=== PATIENT | female | born 1950 | race Caucasian/White ===

== ENCOUNTER 2022-09-17 09:49 | Outpatient (CLI) | payer MEDICARE, BC, SELFPAY ==
[2022-09-17 11:54] LABS: Basophils Absolute Auto 0.1 K/mm3 (0.0-0.1); Basophils Percent Auto 0.7 % (0.2-1.2); Eosinophils Absolute Auto 0.2 K/mm3 (0-0.3); Eosinophils Percent Auto 1.5 % (0-4.4); Hematocrit 45.1 % (37.0-47.0); Hemoglobin 14.5 g/dL (12.0-15.0); Immature Granulocyte Absolute 0.04 K/mm3 (0.00-0.031); Immature Granulocyte Percent A 0.4 % (0-0.5); Lymphocytes Absolute Auto 1.91 K/mm3 (0.9-3.2); Lymphocytes Percent Auto 18.7 % (18.3-44.2); Mean Corpuscular HGB Conc 32.2 g/dl (32-36); Mean Corpuscular Hemoglobin 28.2 pg (26-34); Mean Corpuscular Volume 87.7 fl (80-100); Mean Platelet Volume 10.3 fl (7.4-10.4); Monocytes Absolute Auto 0.8 K/mm3 (0.1-0.6); Monocytes Percent Auto 7.6 % (2.6-8.5); Neutrophils Absolute Auto 7.3 K/mm3 (1.3-6.7); Neutrophils Percent Auto 71.1 % (45.5-73.1); Platelet Count Result 292 k/mm3 (150-375); Red Blood Count 5.14 M/mm3 (4.2-5.4); Red Cell Distribution Width 13.2 % (11.5-14.5); White Blood Count 10.2 K/mm3 (4.5-10.0)
[2022-09-17 12:01] LABS: Albumin Level 4.3 g/dL (3.5-5.1); Anion Gap 6 mmol/L (8-16); Blood Urea Nitrogen 28 mg/dL (7-17); Calcium 9.2 mg/dL (8.4-10.2); Carbon Dioxide 27 mmol/L (22-30); Chloride 107 mmol/L (98-107); Estimated Glomerular Filt Rate > 60; Glucose 82 mg/dL (65-110); Potassium 4.4 mmol/L (3.4-5.0); Sodium 140 mmol/L (137-145)
[2022-09-17 12:04] LABS: Urine Cotinine NEGATIVE
[2022-09-17 12:09] LABS: Hemoglobin A1C 5.5 % (<5.7)
== END 2022-09-17 09:50 | disposition home or self-care (01) ==
PROVIDERS: PCP Nurse Practitioner; Visit Provider Orthopaedic Surgery
DX: M17.11 Unilateral primary osteoarthritis, right knee (principal); Z01.818 Encounter for other preprocedural examination
CPT/HCPCS: 80048; 80307; 82040; 83036; 85025; 87081

== ENCOUNTER 2022-11-09 01:21 | Day surgery (SDC) | payer MEDICARE, BC, SELFPAY ==
[2022-09-17 10:11] VITALS: BP 148/87; PULSE 79; RESP 16; TEMP 36.7; O2SAT 99; BMI 39.4
--- NOTE | 2022-09-17 10:28 | PC.NURSE ---
Report to the Outpatient Waiting Room, entrance under the green pavilion located off [facility], at time _10:00AM on date ___10/07/22____. Planned Procedure Time: __12:00PM . Time changes happen often and if your time is changed the preop area will call you the afternoon before. - You and your visitor will be asked to self-screen and do not enter if you have any COVID symptoms. - A mask is optional within the hospital at this time. Patients may have clear liquids (water, carbonated beverages, clear teas, apple juice) until 3 hours prior to surgery with a maximum of 20 ounces. - No food from midnight until time of surgery Take the following medications with a SIP of water the morning of surgery: ___NONE DO NOT STOP ANY OF YOUR OTHER PRESCRIPTION MEDICATIONS PRIOR TO SURGERY ?EXCEPT THE FOLLOWING Medications to discontinue per physician ___HOLD MELOXICAM AND ALL VITAMINS/SUPPLEMENTS PER DR MCDANIEL(PER PATIENT) Date to take last dose___09/30/22 Please no make-up, nail arabic, hairspray, perfume, deodorant, or body powder the day of surgery. No jewelry (including any body piercings) or valuables the day of surgery, leave them at home. Please take a shower or bath the night before, or the morning of, surgery with an antibacterial soap. Wear comfortable, loose fitting clothing. Children are encouraged to wear pajamas. - Jewelry must be removed prior to entering the operating room. Rings and piercings that are not removed may be cut off. - The hospital will not accept responsibility for valuables. - Please leave all valuables, including medications, at home the day of surgery. If you are going home after surgery, a licensed clamp truck driver must drive you home. - NO public transportation without another adult if you receive anesthesia. - We recommend that an adult stay with you for 24 hours following discharge. - We also recommend that you do not drive, make important decision, drink alcoholic beverages, or take any drugs that were not prescribed by your health care provider for at least 24 hours after your discharge time. Follow any additional instructions given to you from your surgeon. If you or anyone in your household have experienced Covid symptoms in the past week, please notify your surgeon or the nurse liaison at the phone number below for possible testing. Telephone instructions given to ___PATIENT and asked if any additional questions and then verbalized understanding. Patient advised to call surgeon office or pre surgery nurse liaison [phone] if any additional questions.
--- NOTE | 2022-10-06 07:21 | PM.IMHP ---
H&P: HPI History of Present Illness Date/Time: 10/06/22 07:21 Chief Complaint: Right knee DJD Narrative: 72-year-old female patient of Dr. Oconnor who presents today for right total knee arthroplasty. Patient having pain in his knee for years. She has been treated nonsurgically with anti-inflammatories as well as injections. She has not had an injection for 5 months. She has severe medial compartment osteoarthritis in the knee. Patient has range to point where sure symptoms are miserable on a daily basis she feels ready proceed with total knee arthroplasty at this point. Review of Systems Review of Systems: All systems reviewed & are unremarkable except as noted in HPI and below PMFSH Social History Social History Smoking packs per day: 1 Smoking cigarettes per day: 20.0 Years smoked: 20 Smoking pack-years: 20.00 Smoking status: Former smoker Tobacco type: cigarettes Second hand tobacco smoke exposure: No Smoking end date: 10/31/88 Alcohol intake: current Drinks per week: 1 Substance use: never Substance use type: does not use Living arrangements: with family [facility] Spiritual care concerns: No Meds Home Medications and Allergies Home Medications Medication Instructions Recorded Confirmed Type duloxetine 60 mg capsule,delayed 60 mg PO HS 05/20/20 09/17/22 History release atorvastatin 20 mg tablet 20 mg PO HS 09/17/22 09/17/22 History calcium carbonate 333 mg-magnesium 2 tablet PO DAILY 09/17/22 09/17/22 History oxide 133 mg-zinc gluc 5 mg tablet coenzyme Q10 400 mg capsule (Co 400 mg PO EVERY OTHER DAY 09/17/22 09/17/22 History Q-10) esomeprazole magnesium 40 mg 40 mg PO DAILY PRN Indigestion 09/17/22 09/17/22 History capsule,delayed release meloxicam 15 mg tablet 15 mg PO QAM 09/17/22 09/17/22 History Allergies Allergy/AdvReac Type Severity Reaction Status Date / Time prednisone AdvReac Intermediate RAPID Verified 09/17/22 10:03 HEART RATE Exam Narrative: 72-year-old female alert pleasant. She is 5 ft 3 227 lb her BMI is 40.3. Right knee range of motion is from 5-125 degrees. No effusion. Hip range of motion is full without discomfort, negative Stinchfield maneuver. Moderate tenderness over the medial joint line to palpation. Multiple varicose veins throughout the lower extremity without edema. 2+ dorsalis pedis pulse absent posterior artery pulse. No numbness in the right lower extremity. Resp: Auscultation: clear to auscultation bilaterally Cardio: Rate: regular rate Rhythm: regular rhythm Assessment and Plan Assessment and plan (1) Right knee DJD: Code(s): M17.11 - Unilateral primary osteoarthritis, right knee Status: Acute Plan 72-year-old female who has severe medial compartment osteoarthritis the right knee with continued symptoms. Again she feels she is ready proceed with total knee arthroplasty at this point. Surgical procedures well as the risks and complications were discussed in detail all questions were answered and we will proceed. She will walk her meloxicam and any other aspirin ibuprofen products 1 week prior to surgery. She will see her primary care doctor for pre-surgical clearance. She has also seen cardiology, she has a history aneurysm in the ascending aorta that has been stable. She has been cleared from surgery without additional testing. Nasal swab was negative. Chem panel is all within normal limits creatinine is 0.80, hemoglobin 14.5 and platelets are 292. We will plan to use Eliquis for DVT prophylaxis postoperatively.
[2022-10-27 14:58] VITALS: BMI 39.4
--- NOTE | 2022-10-27 15:18 | PC.NURSE ---
PATIENT RESCHEDULED FROM 10/07/22 AFTER FALLING BEFORE COMING IN FOR SURGERY THAT DAY. SHE STATES THAT THE SKIN ON RT KNEE IS NOW HEALED. SEEING DR MCDANIEL IN OFFICE ON 11/04/22 FOR EVAL. ALL PRE-OP INSTRUCTIONS REVIEWED, PT RELAYS UNDERSTANDING. Report to the Outpatient Waiting Room, entrance under the green pavilion located off [facility], at time _6:00AM on date __11/09/22 . Planned Procedure Time: _7:30AM . Time changes happen often and if your time is changed the preop area will call you the afternoon before. - You and your visitor will be asked to self-screen and do not enter if you have any COVID symptoms. - A mask is optional within the hospital at this time. Patients may have clear liquids (water, carbonated beverages, clear teas, apple juice) until 3 hours prior to surgery with a maximum of 20 ounces. - No food from midnight until time of surgery Take the following medications with a SIP of water the morning of surgery: ___NONE DO NOT STOP ANY OF YOUR OTHER PRESCRIPTION MEDICATIONS PRIOR TO SURGERY ?EXCEPT THE FOLLOWING Medications to discontinue per physician __HOLD MELOXICAM AND ALL VITAMINS/SUPPLEMENTS 7 DAYS PRE-OP PER DR MCDANIEL(PER PATIENT)___ Date to take last dose___11/02/22 Please no make-up, nail english, hairspray, perfume, deodorant, or body powder the day of surgery. No jewelry (including any body piercings) or valuables the day of surgery, leave them at home. Please take a shower or bath the night before, or the morning of, surgery with an antibacterial soap. Wear comfortable, loose fitting clothing. Children are encouraged to wear pajamas. - Jewelry must be removed prior to entering the operating room. Rings and piercings that are not removed may be cut off. - The hospital will not accept responsibility for valuables. - Please leave all valuables, including medications, at home the day of surgery. If you are going home after surgery, a licensed local company flatbed truck driver must drive you home. - NO public transportation without another adult if you receive anesthesia. - We recommend that an adult stay with you for 24 hours following discharge. - We also recommend that you do not drive, make important decision, drink alcoholic beverages, or take any drugs that were not prescribed by your health care provider for at least 24 hours after your discharge time. Follow any additional instructions given to you from your surgeon. If you or anyone in your household have experienced Covid symptoms in the past week, please notify your surgeon or the nurse liaison at the phone number below for possible testing. Telephone instructions given to __PATIENT and asked if any additional questions and then verbalized understanding. Patient advised to call surgeon office or pre surgery nurse liaison [phone] if any additional questions.
--- NOTE | 2022-11-06 12:46 | P.PNAN_ITS ---
Anes - Initial Pre Proc Eval Procedure: Operation Date: 11/09/22 07:30 Proposed Procedures p Right Total Knee Arthroplasty - Thierno Pinto MD Date/Time: 11/06/22 12:46 Surgeon: Thierno Pinto MD Pre Op Diagnosis: oa right knee Patient Data Age: 72 Gender: F Height: 1.61 m Weight: 101.7 kg Last Vital Signs Temp 36.7 C 09/17/22 10:11 Pulse 79 09/17/22 10:11 Resp 16 09/17/22 10:11 BP 148/87 H 09/17/22 10:11 Pulse Ox 99 09/17/22 10:11 O2 Del Method Room Air 09/17/22 10:11 Allergies Allergy/AdvReac Type Severity Reaction Status Date / Time prednisone AdvReac Intermediate RAPID Verified 11/09/22 07:06 HEART RATE Home Medications Medication Instructions Recorded Confirmed Type duloxetine 60 mg capsule,delayed 60 mg PO HS 05/20/20 11/09/22 History release atorvastatin 20 mg tablet 20 mg PO HS 09/17/22 11/09/22 History calcium carbonate 333 mg-magnesium 2 tablet PO DAILY 09/17/22 11/09/22 History oxide 133 mg-zinc gluc 5 mg tablet coenzyme Q10 400 mg capsule (Co 400 mg PO EVERY OTHER DAY 09/17/22 11/09/22 History Q-10) esomeprazole magnesium 40 mg 40 mg PO DAILY PRN Indigestion 09/17/22 11/09/22 History capsule,delayed release meloxicam 15 mg tablet 15 mg PO QAM 09/17/22 11/09/22 History Patient hx anesthesia problems: none Family hx anesthesia problems: none Results Review: All pre-operative results and documents have been reviewed as part of the pre- operative evaluation. [facility] Past Medical History Medical History (Updated 11/06/22 @ 12:50 by Neymar Blancas MD) Chronic GERD Hyperlipidemia Obesity Osteoarthritis Social History Social History Smoking packs per day: 1 Smoking cigarettes per day: 20.0 Years smoked: 25 Smoking pack-years: 25.00 Smoking status: Former smoker Tobacco type: cigarettes Second hand tobacco smoke exposure: No Smoking end date: 10/31/90 Alcohol intake: current Drinks per week: 1 Substance use: never Substance use type: does not use Living arrangements: with family Additional living arrangements comments: [facility] Spiritual care concerns: No Anes - Eval Final PreProcedure Day of Procedure 11/06/22 12:46 Patient weight: morbidly obese Heart: regular rate and rhythm Lungs: clear to auscultation and normal air movement Airway: Mallampati scale class II Neurological: alert and oriented Last oral intake: >/= 8 hours ASA classification: III Emergent: no Anesthetic plan: proceed Anesthesia type and monitoring: general ETT Results Review: All pre-operative results and documents have been reviewed as part of the pre- operative evaluation. Informed Consent: The patient's anesthetic plan and its attendant risks and benefits were discussed with the patient/family/POA. Questions were solicited and answers provided to the satisfaction of the patient/family/POA.
--- NOTE | 2022-11-06 12:55 | PM.IMHP ---
H&P: HPI History of Present Illness Date/Time: 11/06/22 12:55 Chief Complaint: Right knee DJD Narrative: 72-year-old female presents today for a right total arthroplasty. Patient has severe medial compartment osteoarthritis in the knee. She has been treating this nonsurgically with anti-inflammatories as well as cortisone injections. At this point non operative measures are not helping and she is having pain on a daily basis. It is limiting her activity. She feels at this point she is ready to proceed with total knee arthroplasty rather continue nonsurgical treatment. Review of Systems Review of Systems: All systems reviewed & are unremarkable except as noted in HPI and below PMFSH Past Medical History Medical History (Updated 11/06/22 @ 12:50 by Neymar Blancas MD) Chronic GERD Hyperlipidemia Obesity Osteoarthritis Social History Social History Smoking packs per day: 1 Smoking cigarettes per day: 20.0 Years smoked: 25 Smoking pack-years: 25.00 Smoking status: Former smoker Tobacco type: cigarettes Second hand tobacco smoke exposure: No Smoking end date: 10/31/90 Alcohol intake: current Drinks per week: 1 Substance use: never Substance use type: does not use Living arrangements: with family [facility] Spiritual care concerns: No Meds Home Medications and Allergies Home Medications Medication Instructions Recorded Confirmed Type duloxetine 60 mg capsule,delayed 60 mg PO HS 05/20/20 10/27/22 History release atorvastatin 20 mg tablet 20 mg PO HS 09/17/22 10/27/22 History calcium carbonate 333 mg-magnesium 2 tablet PO DAILY 09/17/22 10/27/22 History oxide 133 mg-zinc gluc 5 mg tablet coenzyme Q10 400 mg capsule (Co 400 mg PO EVERY OTHER DAY 09/17/22 10/27/22 History Q-10) esomeprazole magnesium 40 mg 40 mg PO DAILY PRN Indigestion 09/17/22 10/27/22 History capsule,delayed release meloxicam 15 mg tablet 15 mg PO QAM 09/17/22 10/27/22 History Allergies Allergy/AdvReac Type Severity Reaction Status Date / Time prednisone AdvReac Intermediate RAPID Verified 10/27/22 14:55 HEART RATE Exam Narrative: 72-year-old female alert pleasant. She is 5 ft 3 and 218 lb BMI is 38.6. Right knee range of motion is from 5-125 degrees. She has mild tenderness over the medial joint line. No definite effusion. Normal stability in the knee. 2+ dorsalis pedis absent posterior artery pulse palpable. Hip range of motion is full without discomfort, negative Stinchfield maneuver. She has normal quad strength. Normal sensation to light touch to lower extremity, no edema in the right lower extremity. Resp: Auscultation: clear to auscultation bilaterally Cardio: Rate: regular rate Rhythm: regular rhythm Assessment and Plan Assessment and plan (1) Right knee DJD: Code(s): M17.11 - Unilateral primary osteoarthritis, right knee Status: Acute Plan 72-year-old female has severe medial compartment osteoarthritis in the right knee with continued symptoms. Again she feels this point she is ready to proceed with total knee arthroplasty. Surgical procedure as well as the risks and complications were discussed in detail questions were answered we will proceed. Patient will stop her meloxicam and any other aspirin ibuprofen products 1 week prior to surgery. Patient will see her primary care doctor for pre-surgical clearance . She is seeing Cardiology and has been evaluated in [facility]. Patient's nasal swab was negative. Chem panel is all within normal limits creatinine 0.80. Hemoglobin 14.5 platelets were 292. Plan use Eliquis for DVT prophylaxis postoperatively.
[2022-11-09] VITALS (18 sets, daily range): BP systolic 115–181; BP diastolic 53–91; PULSE 71–109; RESP 12–19; TEMP 36–37.5; O2SAT 93–100
--- NOTE | ~2022-11-09 | XR_ITS ---
EXAMINATION: [id number] DATE: 11/09/2022 10:17 INDICATION: Postoperative evaluation following right total knee arthroplasty. TECHNIQUE: Anteroposterior and lateral views of the right knee were obtained. COMPARISON: None. FINDINGS: Right total knee arthroplasty with patellar resurfacing appears well seated and in near anatomic alig nment. No fractures identified. Expected postoperative subcutaneous and intra-articular gas. IMPRESSION: 1. Right total knee arthroplasty, negative for postoperative purposes. Reviewed, dictated and finalized at location A.
[2022-11-09] MEDS: LACTATED RINGERS 1,000 ML 30 ML IV CONT ×2 (06:45→10:18)
[2022-11-09] MEDS: TRANEXAMIC ACID 1,000MG/ISO100 1,000 MG/100 ML BAG 200 MG IVPB (07:00)
[2022-11-09] MEDS: ACETAMINOPHEN 500 MG TABLET 1000 MG PO ×2 (07:14→18:14)
--- NOTE | 2022-11-09 07:15 | WPDHPUPDATE1 ---
History and Physical Update Update Date/Time: 11/09/22 07:15 History and Physical has been reviewed, including an updated exam of the patient. There are NO changes in the patient's condition. Risks, benefits, and alternatives have been discussed and questions answered. Patient agrees to proceed with procedure.
[2022-11-09] MEDS: ceFAZolin 2 GM/D5W 50 ML 2 GM/50 ML BAG IVPB (07:26)
[2022-11-09] MEDS: ceFAZolin SODIUM 1 GM VIAL 3 GM (07:51)
[2022-11-09] MEDS: GENTAMICIN BONE CEMENT REFOBACIN 1 EACH TOPICAL (07:52)
[2022-11-09] MEDS: ceFAZolin SODIUM 1 GM VIAL 2 GM IV PUSH (09:26)
[2022-11-09] MEDS: TRANEXAMIC ACID 1,000 MG/10 ML AMPUL 1000 MG IV PUSH (09:26)
--- NOTE | 2022-11-09 10:00 | W.PM.PROC2 ---
Procedure Note - Detailed Date of Procedure 11/09/22 Pre-op Diagnosis oa right knee, obesity, BMI 38. Post-op Diagnosis Same Procedure Performed Patient was brought to the operating room and general anesthesia was administered. The right knee was prepped draped usual fashion. She received 2 g of Ancef, weight based vancomycin, and 1 g of tranexamic acid preoperatively. I felt there were a couple of degrees of hyperextension under anesthesia and she had moderate medial pseudolaxity and lateral laxity. Limb was exsanguinated tourniquet elevated to 300 mmHg. A 7 in longitudinal midline incision was used and a vastus medialis splitting approach utilized splitting the vastus medialis at the superior pole of the patella. Infrapatellar and suprapatellar fat pads were excised a quadriceps synovectomy carried out. There were small osteophytes on the medial and inferior patella but normal articular cartilage on the entire patella which had a smooth contour and the patella was small in size and I felt this was most suitable for non resurfacing. A minimal lateral facetectomy was performed. A guide chris was inserted down the femoral canal after aspiration of canal contents using the 5 degree valgus bushing, 8 mm of bone removed off the distal femur. This removed equal amounts medially and laterally due to the wear medially. Next the tibial plateau was cut. We made a cut about 2 mm under the sclerotic portion of the medial tibial plateau perpendicular to the axis of the tibia. Meniscal remnants were excised the PCL recessed. Flexion gap measured 8 mm medially and 11 mm laterally. The femoral sizing guide was set at 4? of external rotation which matched Whitesides line. Posterior referencing pinholes were placed. We applied the size 65 cutting block and this was going to notch a little bit. We applied the 67.5 made the anterior cut and confirmed that the 65 would indeed notch a little bit. We flexed the femoral component a couple degrees and this allowed us to make a nice anterior cut with the 65 cutting block without notching. Posterior and chamfer cuts were made. The 65 fit nicely with flush fit medially and 1 mm of lateral overhang anterolaterally. Flexion space with the 10 CR insert was symmetric. The knee just came out to full extension. The tibia was sized to a 71 which fit line to line anteromedial to posterolateral at proper rotation. This was punched. We trialed with a 10 insert we had appropriate stability in flexion with 1 mm medial and lateral opening degrees. At extension we had 1/2 mm of medial opening 2.5 mm of lateral opening a barely positive bounce. Posterior femoral osteophyte was removed. We did not perform a posterior capsular release because of her obesity and slight hyperextension preoperatively. Posteromedial osteophyte was removed the tibia but we did not release any of the deep capsule from the tibial plateau. We read trialed and at this time the knee came out to full extension with negative bounce with the 10 insert the same 1/2 mm of medial opening 2 and half lateral opening appropriate stability in all positions and central patellar tracking. Lug holes were drilled. Step drill was used to make multiple perforations in the distal femur and tibial plateau. The bone quality was very good. Bony surfaces were thoroughly irrigated and dried. Using 2 batches of methylmethacrylate 1 the gentamicin powder the cement was immediately applied the 71 vanguard tibial tray then the 65 CR right femoral component then cement applied the tibial plateau pressurized tibial component fully seated cement applied to the femur the femoral component was fully seated the knee brought into extension with the 11 mm 5 and 1 poly insert for cement pressurization tourniquet released at 87 minutes. The cement was allowed to harden after which hemostasis was achieved excess cement was sought for removed. We trialed again with the 10 insert and had the same fin
--- NOTE | 2022-11-09 10:23 | PM.OP ---
Procedure Note - Brief Procedure Note - Brief Date of procedure: 11/09/22 oa right knee Procedure performed: Right total knee arthroplasty Surgeon: BERNABE Yap Description of procedure: 72-year-old female underwent right total knee arthroplasty on 11/09. I was involved in the procedure including positioning patient on OR table as well as 1st assisting through the time of surgery and assisting getting patient to recovery. Total time spent was 3 hours
[2022-11-09] MEDS: fentaNYL CITRATE INJ (*CRX) 100 MCG/2 ML VIAL 25 MCG IV PUSH ×6 (10:37→11:09)
--- NOTE | 2022-11-09 12:30 | ADMGEN ---
This patient, Justyn Barahona, was admitted to Medical Room 251-01. Patient/family oriented to hospital policies and general routines including ID bracelet, bed and alarms, visiting hours, pain management, procedures, bathroom and other care routines, personal items, smoking policy, room service/diet, and visiting hours. Information on how to activate the Rapid Response Team has been discussed. Patient/Family are encouraged to report perceived risks to care and to ask questions if they do not understand what they are told or what they should do.
[2022-11-09] MEDS: oxyCODONE HCL (*CRX) 5 MG TAB IR PO (12:51)
[2022-11-09] MEDS: SODIUM CHLORIDE 0.9% IV 1,000 ML 125 ML IV CONT (12:51)
--- NOTE | 2022-11-09 12:56 | WPDCN ---
Assessment and Plan Assessment and plan (1) Right knee DJD: Code(s): M17.11 - Unilateral primary osteoarthritis, right knee Status: Acute Assessment and Plan: Postoperative day 0 status post right total knee arthroplasty. Wound care, pain control, and DVT prophylaxis deferred to primary service. Agree with PT/OT. (2) Hyperlipidemia: Code(s): E78.5 - Hyperlipidemia, unspecified Status: Acute Assessment and Plan: Continue atorvastatin. (3) Gastroesophageal reflux disease: Code(s): K21.9 - Gastro-esophageal reflux disease without esophagitis Status: Acute Assessment and Plan: No current issues. Continue esomeprazole. (4) Depression: Code(s): F32.A - Depression, unspecified Status: Acute Assessment and Plan: Well controlled on medication. Continue duloxetine. Plan Thank you for allowing us to participate in this patient's care. Please do not hesitate to contact us with any questions. HPI Data of Consult Date/Time: 11/09/22 12:55 Requesting Physician: Thierno Pinto MD Primary Care Provider: Kinza Oconnor, LIBRARY CIRCULATION TECHNICIAN-C Consult Narrative Reason for consult: Postoperative medical management. Narrative: This is a very pleasant 72-year-old female with osteoarthritis, dyslipidemia, gastroesophageal reflux disease, and depression whom the hospitalist service has been consulted for help managing her medical conditions postoperatively. She presented today for elective right knee replacement due to ongoing pain despite conservative outpatient treatment. Her surgery was performed under general anesthesia with no immediate complications documented an estimated blood loss of 200 mL. Postoperatively she has done quite well. She has been up to the chair and to the bathroom several times without much issue. She does have some discomfort in the knee with bending but her pain has been well controlled. She denies paresthesias, skin color, and temperature changes distal to the surgical site. She also denies postoperative fever, chills, sweats, chest pain, shortness a breath, nausea, and vomiting. No personal history of venous thromboembolism. On discharge she will be going home in her will be helping care for her. Regarding her chronic medical conditions, they are few and well controlled with medication. Review of Systems Review of Systems: Twelve systems were reviewed and are negative except for as per HPI. [facility] Past Medical History Medical History (Updated 11/09/22 @ 13:00 by Inna Combs PA-C) Depression Diverticulitis Gastroesophageal reflux disease History of benign breast biopsy Hyperlipidemia Obesity Osteoarthritis Surgical History Surgical History (Updated 11/09/22 @ 13:00 by Inna Combs PA-C) History of arthroplasty of right knee (11/09/22) History of bladder suspension procedure History of eye surgery Glaucoma laser surgery, bilateral. History of hernia repair History of hysterectomy History of laparoscopic adjustable gastric banding History of laparoscopy Social History Social History (Updated 11/09/22 @ 13:01 by Inna Combs PA-C) Social History: Surrogate medical decision maker: Lai Barahona, spouse. Code status: Full code. Smoking packs per day: 1 Smoking cigarettes per day: 20.0 Years smoked: 25 Smoking pack-years: 25.00 Smoking status: Former smoker Tobacco type: cigarettes Second hand tobacco smoke exposure: No Smoking end date: 10/31/90 Alcohol intake: current Drinks per week: 1 Substance use: never Substance use type: does not use Lack of Transportation: No Lack of Food: Never True Current Housing: I Have Housing Concerned About Future Housing: No Difficulty Paying Gas/Electric Bills: No Difficulty Paying for Meds: No Currently Unemployed: No Education: High School Diploma/GED Difficulty w/ Childcare or Family Care: No Ailin
--- NOTE | 2022-11-09 16:46 | PCPTNOTE ---
On 11/09/22, the student, MARY Badillo, provided care and completed [facility] documentation on this patient. I have reviewed the student's documentation and agree with the findings.
[2022-11-09] MEDS: ceFAZolin 1 GM/NS 50 ML 1 GM/50 ML BAG IVPB (16:52)
[2022-11-09] MEDS: KETOROLAC 15 MG/ML VIAL (*BKC) IV PUSH (16:54)
[2022-11-09] MEDS: SENNA/DOCUSATE SODIUM TABLET 2 TAB PO (16:55)
[2022-11-09] MEDS: oxyCODONE HCL (*CRX) 2.5 MG TAB IR PO ×2 (16:55→20:17)
[2022-11-09] MEDS: VANCOMYCIN 1,000 MG/NS 250 ML 1,000 MG/250 ML BAG 250 MG IVPB (20:17)
[2022-11-09] MEDS: ATORVASTATIN 20 MG TABLET PO (20:17)
[2022-11-09] MEDS: DULoxetine HCL 60 MG CAPSULE.DR PO (20:17)
[2022-11-09] MEDS: FAMOTIDINE 20 MG TABLET PO (20:17)
[2022-11-10] VITALS: BP 118/53; PULSE 67; RESP 19; TEMP 36.6; O2SAT 99
[2022-11-10] MEDS: ceFAZolin 1 GM/NS 50 ML 1 GM/50 ML BAG IVPB ×2 (01:25→07:25)
[2022-11-10] MEDS: ACETAMINOPHEN 500 MG TABLET 1000 MG PO ×2 (01:25→05:09)
[2022-11-10] MEDS: oxyCODONE HCL (*CRX) 2.5 MG TAB IR PO ×3 (01:26→08:23)
[2022-11-10 02:00] VITALS: BP 93/40; PULSE 70; RESP 17; TEMP 36.5; O2SAT 97
[2022-11-10 04:00] VITALS: BP 119/59; PULSE 64; RESP 17; TEMP 35.5; O2SAT 99
[2022-11-10 05:44] LABS: Basophils Absolute Auto 0.1 K/mm3 (0.0-0.1); Basophils Percent Auto 0.2 % (0.2-1.2); Hematocrit 41.7 % (37.0-47.0); Immature Granulocyte Absolute 0.17 K/mm3 (0.00-0.031); Immature Granulocyte Percent A 0.8 % (0-0.5); Lymphocytes Absolute Auto 2.33 K/mm3 (0.9-3.2); Lymphocytes Percent Auto 11.5 % (18.3-44.2); Mean Corpuscular HGB Conc 31.2 g/dl (32-36); Mean Corpuscular Hemoglobin 28.1 pg (26-34); Mean Corpuscular Volume 90.1 fl (80-100); Mean Platelet Volume 10.4 fl (7.4-10.4); Monocytes Absolute Auto 1.6 K/mm3 (0.1-0.6); Monocytes Percent Auto 7.6 % (2.6-8.5); Neutrophils Absolute Auto 16.2 K/mm3 (1.3-6.7); Neutrophils Percent Auto 79.9 % (45.5-73.1); Platelet Count Result 284 k/mm3 (150-375); Red Blood Count 4.63 M/mm3 (4.2-5.4); Red Cell Distribution Width 13.7 % (11.5-14.5); White Blood Count 20.3 K/mm3 (4.5-10.0)
[2022-11-10 05:55] VITALS: BP 114/53; PULSE 66; RESP 17; TEMP 36.6; O2SAT 93
[2022-11-10 06:02] LABS: Alkaline Phosphatase 113 U/L (38-126); Anion Gap 2 mmol/L (8-16); Aspartate Amino Transferase 34 U/L (14-36); Bilirubin,Total 0.5 mg/dL (0.2-1.3); Blood Urea Nitrogen 20 mg/dL (7-17); Calcium 8.8 mg/dL (8.4-10.2); Carbon Dioxide 28 mmol/L (22-30); Chloride 106 mmol/L (98-107); Estimated CRCL calculation 65 ml/min; Estimated Glomerular Filt Rate > 60; Glucose 103 mg/dL (65-110); Magnesium 2.1 mg/dL (1.6-2.3); Potassium 4.1 mmol/L (3.4-5.0); Sodium 136 mmol/L (137-145)
[2022-11-10 06:08] LABS: Alanine Aminotransferase 41 U/L (6-35)
--- NOTE | 2022-11-10 06:24 | PM.PNORT ---
Subjective Subjective Date/Time Seen: 11/10/22 06:24 Interval history: Postop day 1 patient is alert. She is afebrile vital signs are stable. Blood pressure is maintained very well overnight. Incision is dry and dressing is dry. Patient was up yesterday with physical therapy ambulating. Pain is well controlled. We did decrease her oxycodone 2.5 mg she is a little drowsy yesterday. Pain is well controlled with the 2.5 mg. She will get started on Celebrex this morning as well as her Eliquis. We will have the patient work with physical therapy this morning and she continues do well should be discharged home later this morning Objective Data Vital Signs Vital Signs: Vital Signs - 24 hr 11/09/22 06:45 11/09/22 10:18 11/09/22 10:30 Temperature 36.0 C L 36.7 C Pulse Rate 84 104 H 106 H Respiratory Rate 16 14 16 Blood Pressure 135/82 169/89 H 181/82 H Pulse Oximetry 97 97 100 Oxygen Delivery Room Air Simple Face Mask Simple Face Mask Oxygen Flow Rate 8 8 11/09/22 10:45 11/09/22 11:00 11/09/22 11:15 Temperature Pulse Rate 105 H 106 H 109 H Respiratory Rate 14 12 12 Blood Pressure 177/91 H 148/84 H 136/86 Pulse Oximetry 100 99 98 Oxygen Delivery Simple Face Mask Simple Face Mask Simple Face Mask Oxygen Flow Rate 8 8 8 11/09/22 11:25 11/09/22 11:30 11/09/22 11:45 Temperature Pulse Rate 107 H 104 H Respiratory Rate 12 16 Blood Pressure 145/83 H 148/76 H Pulse Oximetry 94 95 93 Oxygen Delivery Room Air Room Air Room Air Oxygen Flow Rate 11/09/22 12:00 11/09/22 12:35 11/09/22 12:50 Temperature 36.7 C 36.4 C Pulse Rate 103 H 73 76 Respiratory Rate 14 15 16 Blood Pressure 121/73 121/61 120/66 Pulse Oximetry 93 94 94 Oxygen Delivery Room Air Oxygen Flow Rate 11/09/22 13:45 11/09/22 13:20 11/09/22 14:20 Temperature 36.4 C 36.4 C Pulse Rate 77 104 H Respiratory Rate 16 16 Blood Pressure 123/65 124/75 Pulse Oximetry 94 99 Oxygen Delivery Room Air Oxygen Flow Rate 11/09/22 12:30 11/09/22 16:20 11/09/22 18:20 Temperature Pulse Rate 80 82 Respiratory Rate Blood Pressure 136/68 138/72 Pulse Oximetry Oxygen Delivery Room Air Oxygen Flow Rate 11/09/22 20:00 11/09/22 22:00 11/10/22 00:00 Temperature 37.5 C 36.9 C 36.6 C Pulse Rate 74 71 67 Respiratory Rate 19 19 Blood Pressure 117/60 115/53 L 118/53 L Pulse Oximetry 97 98 99 Oxygen Delivery Oxygen Flow Rate 11/10/22 02:00 11/10/22 04:00 11/10/22 05:55 Temperature 36.5 C 35.5 C L 36.6 C Pulse Rate 70 64 66 Respiratory Rate 17 17 17 Blood Pressure 93/40 L 119/59 L 114/53 L Pulse Oximetry 97 99 93 Oxygen Delivery Oxygen Flow Rate Intake/Output Intake/Output: Intake & Output 11/07/22 11/08/22 11/09/22 11/10/22 23:59 23:59 23:59 23:59 Intake Total 1960 350 Balance 1960 350 Meds/Results Medications: Active Medications Generic Name Dose Route Start Last Admin Trade Name Freq PRN Reason Stop Dose Admin Acetaminophen 1,000 mg 11/09/22 18:00 11/10/22 05:09 Acetaminophen 500 Mg Tablet PO 1,000 mg Q6H KWAME Administration Apixaban 2.5 mg 11/10/22 09:00 Apixaban 2.5 Mg Tablet PO 11/21/22 21:01 Q12HR KWAME Atorvastatin Calcium 20 mg 11/09/22 21:00 11/09/22 20:17 Atorvastatin 20 Mg Tablet PO 20 mg HS KWAME Administration Celecoxib 200 mg 11/10/22 08:00 Celecoxib 200 Mg Capsule PO DAILY@0800 KWAME Cephalexin HCl 500 mg 11/10/22 12:00 Cephalexin 500 Mg Capsule PO Q6HR KWAME Diphenhydramine HCl 25 mg 11/09/22 12:06 Diphenhydramine Hcl Inj 50 Mg/Ml Vial IV PUSH Q6H PRN Itching Duloxetine HCl 60 mg 11/09/22 21:00 11/09/22 20:17 Duloxetine Hcl 60 Mg Capsule.Dr PO 60 mg HS KWAME Administration Famotidine 20 mg 11/09/22 21:00 11/09/22 20:17 Famotidine 20 Mg Tablet PO 20 mg Q12HR KWAME Administration Vancomycin HCl 1,000 mg in 250 mls @ 250 mls/hr 11/09/22 20:00 11/09/22 21:17
--- NOTE | 2022-11-10 06:29 | PM.DS ---
DS: Admitting Diagnosis Discharge Date 11/10 Admitting Diagnosis Right knee DJD DS: Summary Hospital Course Hospital Course: 72-year-old female underwent right total knee arthroplasty on 11/09. Underwent the procedure without complications. Postoperatively she has been afebrile vital signs are stable. Blood pressure was monitored postop due to her history of aortic aneurysm. Pressure never went above 120 systolic. She is on Eliquis for DVT prophylaxis. She is weight-bearing as tolerated. Pain is well controlled with 2.5 mg oxycodone as well as scheduled Tylenol. She is on Celebrex 200 mg daily. She will be discharged home on 11/10. She go home with we could Keflex. She was home with Senokot MiraLax for constipation. Patient was advised she is to keep leg elevated at home prevent swelling. She should do this with keeping the foot higher than her heart, either the bed or the couch. This was thoroughly explained to the patient. She has outpatient therapy starting of this week. Patient was advised she needs to do exercises of flexion extension in the knee every hour while awake at home as well. She was advised any questions or concerns she is to call the office otherwise we will see her at her appointed date. Time Spent with Patient Time attestation: Total time spent providing and/or coordinating discharge services: DS: Data Data Completed and Pending Labs on day of discharge: Labs from last 24 hours 11/10/22 11/09/22 05:21 06:57 WBC Pending RBC Pending Hgb Pending Hct Pending MCV Pending MCH Pending MCHC Pending RDW Pending Plt Count Pending MPV Pending Immature Gran % (Auto) Pending Neut % (Auto) Pending Lymph % (Auto) Pending [place] % (Auto) Pending Eos % (Auto) Pending Baso % (Auto) Pending Lymph # (Auto) Pending [place] # (Auto) Pending Eos # (Auto) Pending Baso # (Auto) Pending Abs Immat Gran (auto) Pending Absolute Neuts (auto) Pending Absolute Nucleated RBC Pending Nucleated RBC % Pending Sodium 136 L Potassium 4.1 Chloride 106 Carbon Dioxide 28 Anion Gap 2 L BUN 20 H Creatinine 0.80 Estim Creat Clear Calc 65 Estimated GFR > 60 Glucose 103 Calcium 8.8 Magnesium 2.1 Total Bilirubin 0.5 Direct Bilirubin 0.0 AST 34 ALT 41 H Alkaline Phosphatase 113 Total Protein 7.0 Albumin 4.0 Blood Type B Positive Antibody Screen Negative Discharge Plan Discharge Patient Disposition: Home, Self-Care Discharge Instructions: ROEL MCDANIEL M.D [facility], [place] [id number] [place] [address] POST-OPERATIVE DISCHARGE INSTRUCTIONS TOTAL KNEE ARTHROPLASTY 1. When resting, lie on back with leg elevated above heart to minimize swelling. Significant swelling could indicate a blood clot and if this occurs call the office (or go to the ER) to have a venous ultrasound. 2. Do exercise 5 times a day. 3. Do not sit with leg down except for meals. 4. Wound Care: Nursing will give additional dressings at discharge. Patient to change dressing at home 1 week from surgery, then maintain until seen in office. 5. May shower with dressing in place. 6. Follow weight bearing status instructions. IMPORTANT: Remember not to sit in the chair for more than 30 minutes at a time. As a rule, during the first 14 days after surgery, only sit in the chair to work on the chair knee bending stretch exercise, for meals or for use of the restroom. Sitting in the chair promotes significant swelling in the knee and leg which will make the knee stiff and more painful and which simulates having a blood clot in the veins of the leg. If this type of significant diffuse swelling occurs, an ultrasound at the hospital will be necessary to rule out a blood clot. Be up walking around with the walker for a few minutes every hour while awake and then rest laying on your back on the
[2022-11-10 08:00] VITALS: BP 125/64; PULSE 68
[2022-11-10] MEDS: VANCOMYCIN 1,000 MG/NS 250 ML 1,000 MG/250 ML BAG 125 MG IVPB (08:23)
[2022-11-10] MEDS: CELECOXIB 200 MG CAPSULE PO (08:51)
[2022-11-10] MEDS: FAMOTIDINE 20 MG TABLET PO (08:52)
[2022-11-10] MEDS: APIXABAN 2.5 MG TABLET PO (08:52)
[2022-11-10] MEDS: oxyCODONE HCL (*CRX) 5 MG TAB IR PO (10:49)
--- NOTE | 2022-11-10 11:37 | PM.IMPN ---
Progress Note: A&P Assessment and Plan (1) Right knee DJD: Code(s): M17.11 - Unilateral primary osteoarthritis, right knee Status: Acute Assessment and Plan: Postoperative day 0 status post right total knee arthroplasty. Wound care, pain control, and DVT prophylaxis deferred to primary service. Agree with PT/OT. (2) Hyperlipidemia: Code(s): E78.5 - Hyperlipidemia, unspecified Status: Acute Assessment and Plan: Continue atorvastatin. (3) Gastroesophageal reflux disease: Code(s): K21.9 - Gastro-esophageal reflux disease without esophagitis Status: Acute Assessment and Plan: No current issues. Continue esomeprazole. (4) Depression: Code(s): F32.A - Depression, unspecified Status: Acute Assessment and Plan: Well controlled on medication. Continue duloxetine. Plan Thank you for allowing us to participate in this patient's care. Please do not hesitate to contact us with any questions. Subjective Date/time seen: 11/10/22 11:37 Interval history: Patient doing well today with no complaints at this time. She is medically stable and cleared for discharge from medical standpoint. Review of Systems Review of Systems: All systems reviewed & are unremarkable except as noted in HPI and below Exam Narrative: GENERAL: Comfortable, no acute distress HENMT: moist mucous membranes EYES: EOM intact b/l NECK: no lymphadenopathy RESPIRATORY: clear to auscultation CARDIO: RRR GI: soft, nontender, bowel sounds present SKIN: no rashes EXTREMITIES: Right knee Tegaderm intact and dry Objective Data Vital Signs Vital Signs: Vital Signs - 24 hr 11/09/22 11:45 11/09/22 12:00 11/09/22 12:35 Temperature 98.0 F Pulse Rate 104 H 103 H 73 Respiratory Rate 16 14 15 Blood Pressure 148/76 H 121/73 121/61 Pulse Oximetry 93 93 94 Oxygen Delivery Room Air Room Air 11/09/22 12:50 11/09/22 13:45 11/09/22 13:20 Temperature 97.6 F 97.6 F Pulse Rate 76 77 Respiratory Rate 16 16 Blood Pressure 120/66 123/65 Pulse Oximetry 94 94 Oxygen Delivery Room Air 11/09/22 14:20 11/09/22 12:30 11/09/22 16:20 Temperature 97.6 F Pulse Rate 104 H 80 Respiratory Rate 16 Blood Pressure 124/75 136/68 Pulse Oximetry 99 Oxygen Delivery Room Air 11/09/22 18:20 11/09/22 20:00 11/09/22 22:00 Temperature 99.5 F 98.5 F Pulse Rate 82 74 71 Respiratory Rate 19 Blood Pressure 138/72 117/60 115/53 L Pulse Oximetry 97 98 Oxygen Delivery 11/10/22 00:00 11/10/22 02:00 11/10/22 04:00 Temperature 97.8 F 97.7 F 96 F L Pulse Rate 67 70 64 Respiratory Rate 19 17 17 Blood Pressure 118/53 L 93/40 L 119/59 L Pulse Oximetry 99 97 99 Oxygen Delivery 11/10/22 05:55 11/10/22 08:00 Temperature 97.9 F Pulse Rate 66 68 Respiratory Rate 17 Blood Pressure 114/53 L 125/64 Pulse Oximetry 93 Oxygen Delivery Intake/Output Intake/Output: Intake & Output 11/07/22 11/08/22 11/09/22 11/10/22 23:59 23:59 23:59 23:59 Intake Total 1960 820 Balance 1960 820 Meds/Results Radiology Results: ITS Impressions Knee X-Ray 11/09/22 10:32 IMPRESSION: 1. Right total knee arthroplasty, negative for postoperative purposes. Labs Labs: Laboratory Results - last 24 hr 11/10/22 05:21 WBC 20.3 H RBC 4.63 Hgb 13.0 Hct 41.7 MCV 90.1 MCH 28.1 MCHC 31.2 L RDW 13.7 Plt Count 284 MPV 10.4 Immature Gran % (Auto) 0.8 H Neut % (Auto) 79.9 H Lymph % (Auto) 11.5 L [place] % (Auto) 7.6 Eos % (Auto) 0.0 Baso % (Auto) 0.2 Lymph # (Auto) 2.33 [place] # (Auto) 1.6 H Eos # (Auto) 0.0 Baso # (Auto) 0.1 Abs Immat Gran (auto) 0.17 H Absolute Neuts (auto) 16.2 H Absolute Nucleated RBC 0.0 Nucleated RBC % 0.0 Sodium 136 L Potassium 4.1 Chloride 106 Carbon Dioxide 28 Anion Gap 2 L BUN 20 H Creatinine 0.80 Estim Creat Clear Calc 65 Estimated GFR > 60 Glucose 103 Calcium
== END 2022-11-10 11:16 | disposition home or self-care (01) ==
LOC: ANHSURGERY 06:57 → ANH2MED 12:10
PROVIDERS: Physician Assistant; Physician Assistant Surgical; PCP Nurse Practitioner; Visit Provider Orthopaedic Surgery
PROC: (CPT 27447; principal; 2022-11-09 07:30)
DX: M17.11 Unilateral primary osteoarthritis, right knee (principal); E78.5 Hyperlipidemia, unspecified; K21.9 Gastro-esophageal reflux disease without esophagitis; F32.A Depression, unspecified; Z87.891 Personal history of nicotine dependence; E66.01 Morbid (severe) obesity due to excess calories; Z68.41 Body mass index [BMI] 40.0-44.9, adult
CPT/HCPCS: 27447; 36415; 73560; 80048; 80076; 83735; 85025; 86850; 86900; 86901; 97110; 97116; 97161; 97165; 97530; 97535; A9270; C1713; C1776; J0171; J0690; J1170; J1885; J2250; J2270; J2795; J3010; J3370; J7030; J7120